=== PATIENT | female | born 1950 | race Caucasian/White ===

== ENCOUNTER 2021-12-26 18:55 | Emergency (ER) | payer OTHER ==
[2021-12-26] MEDS ORDERED: LOPRESSOR 50 MG50 MG PO (20:24)
== END 2021-12-26 20:39 | disposition home or self-care (01) ==
LOC: ER1 18:55
DX: M17.12 Unilateral primary osteoarthritis, left knee (principal); E11.9 Type 2 diabetes mellitus without complications; I10 Essential (primary) hypertension; Z86.718 Personal history of other venous thrombosis and embolism
CPT/HCPCS: 29530; 73562; 93005; 99283

== ENCOUNTER → 2021-12-28 | Outpatient (CLI) | payer OTHER ==
[~2021-12-28] MED LIST: LOPRESSOR 50 MG50 MG PO
== END ==
LOC: US 11:44
DX: R22.42 Localized swelling, mass and lump, left lower limb (principal)
CPT/HCPCS: 93971